=== PATIENT | female | born 1955 | race Caucasian/White ===

== ENCOUNTER 2023-10-13 00:57 | Day surgery (SDC) | payer MEDICARE, SELFPAY ==
[2023-10-12 08:34] VITALS: BMI 23.9
--- NOTE | 2023-10-12 08:48 | PC.NURSE ---
Report to the Outpatient Waiting Room, entrance under the green pavilion located off [facility], at time _1200_ on date _[id number]_. Planned Procedure Time: _2pm_. Time changes happen often and if your time is changed the preop area will call you the afternoon before. - You and your visitor will be asked to self-screen and do not enter if you have any COVID symptoms. - A mask is optional within the hospital at this time. Patients may have clear liquids (water, carbonated beverages, clear teas, apple juice) until 3 hours prior to surgery with a maximum of 20 ounces. - No food from midnight until time of surgery Take the following medications with a SIP of water the morning of surgery: __Metoprolol and eye drops. DO NOT STOP ANY OF YOUR OTHER PRESCRIPTION MEDICATIONS PRIOR TO SURGERY ?EXCEPT THE FOLLOWING Medications to discontinue per physician No vitamins today. __No insulin tomorrow morning. Call [phone] if having issues with blood sugars. Date to take last dose Please no make-up, nail slovenian, hairspray, perfume, deodorant, or body powder the day of surgery. No jewelry (including any body piercings) or valuables the day of surgery, leave them at home. Please take a shower or bath the night before, or the morning of, surgery with an antibacterial soap. Wear comfortable, loose fitting clothing. - Jewelry must be removed prior to entering the operating room. Rings and piercings that are not removed may be cut off. - The hospital will not accept responsibility for valuables. - Please leave all valuables, including medications, at home the day of surgery. If you are going home after surgery, a licensed distribution driver must drive you home. - NO public transportation without another adult if you receive anesthesia. - We recommend that an adult stay with you for 24 hours following discharge. - We also recommend that you do not drive, make important decision, drink alcoholic beverages, or take any drugs that were not prescribed by your health care provider for at least 24 hours after your discharge time. Follow any additional instructions given to you from your surgeon. If you or anyone in your household have experienced Covid symptoms in the past week, please notify your surgeon or the nurse liaison at the phone number below for possible testing. Telephone instructions given to __Kateshena___and asked if any additional questions and then verbalized understanding. Patient advised to call surgeon office or pre surgery nurse liaison [phone] if any additional questions.
[2023-10-13] VITALS (9 sets, daily range): BP systolic 98–171; BP diastolic 39–61; PULSE 55–91; RESP 13–24; TEMP 36.2–36.6; O2SAT 96–100
--- NOTE | 2023-10-13 12:30 | WPDANESEPPF ---
Anes - Initial Pre Proc Eval Procedure: Operation Date: 10/13/23 14:00 Proposed Procedures p Laparoscopic Insertion Peritoneal Dialysis Catheter - Linden Stephens DO Date/Time: 10/13/23 12:30 Surgeon: Linden Stephens DO Pre Op Diagnosis: ESRD Patient Data Age: 67 Gender: F Height: 1.6 m Weight: 61.3 kg Allergies Allergy/AdvReac Type Severity Reaction Status Date / Time Penicillins Allergy Unknown Unknown Verified 10/12/23 08:30 Home Medications Medication Instructions Recorded Confirmed Type aspirin 81 mg tablet,delayed 81 mg PO DAILY 10/01/23 10/12/23 History release (Adult Aspirin Regimen) atorvastatin 80 mg tablet 80 mg PO QHS 10/01/23 10/12/23 History brimonidine 0.2 % eye drops 1 drp EACH EYE Q8H 10/01/23 10/12/23 History cetirizine 10 mg tablet (All Day 10 mg PO DAILY PRN Allergy Symptoms 10/01/23 10/12/23 History Allergy (cetirizine)) cholecalciferol (vitamin D3) 50 50 mcg PO DAILY 10/01/23 10/12/23 History mcg (2,000 unit) capsule dorzolamide 2 % eye drops 1 drp EACH EYE TID 10/01/23 10/12/23 History ezetimibe 10 mg tablet 10 mg PO DAILY 10/01/23 10/12/23 History ferrous sulfate 325 mg (65 mg 325 mg PO BID 10/01/23 10/12/23 History iron) tablet fluticasone propionate 50 1 spray intranasal DAILY PRN 10/01/23 10/12/23 History mcg/actuation nasal Allergy Symptoms spray,suspension insulin aspart U-100 100 unit/mL 1 sliding scale dose subcut 10/01/23 10/12/23 History (3 mL) subcutaneous pen (Novolog USEASDIRECTD FlexPen U-100 Insulin aspart) insulin degludec 100 unit/mL (3 10 unit subcut QHS 10/01/23 10/12/23 History mL) subcutaneous pen (Tresiba FlexTouch U-100 insulin) mecobalamin (vitamin B12) 1,000 1,000 mcg PO DAILY 10/01/23 10/12/23 History mcg chewable tablet metoprolol succinate 50 mg 50 mg PO DAILY 10/01/23 10/12/23 History tablet,extended release 24 hr pantoprazole 40 mg tablet,delayed 40 mg PO QAM 10/01/23 10/12/23 History release vitamin A-vitamin C-vit E-min 1 tablet PO DAILY 10/12/23 10/12/23 History tablet Patient hx anesthesia problems: none Family hx anesthesia problems: none Results Review: All pre-operative results and documents have been reviewed as part of the pre-operative evaluation. COUNTS INCLUDE 234 BEDS AT THE [facility] Past Medical History Medical History Anemia CHF (congestive heart failure) Diabetes GERD (gastroesophageal reflux disease) Hyperlipidemia Kidney disease Osteoporosis Surgical History Surgical History History of left breast biopsy x3 History of quadruple bypass 03/12/23 Hx of section Family History Family History Mother Hypertension Grandparent Hypertension Social History Social History Years smoked: 5 Smoking status: Former smoker Smoking end date: 10/12/79 Alcohol intake: never Do You Feel Safe in your Home?: Yes Lack of Transportation: No Lack of Food: Never True Current Housing: I Have Housing Concerned About Future Housing: No Difficulty Paying Gas/Electric Bills: No Difficulty Paying for Meds: No Currently Unemployed: No Education: High School Diploma/GED Difficulty w/ Childcare or Family Care: No Living arrangements: with family Occupation/Education: retired Spiritual care concerns: No Anes - Eval Final PreProcedure Day of Procedure 10/13/23 12:30 Patient weight: normal Heart: regular rate and rhythm Lungs: clear to auscultation Airway: Mallampati scale class II Neurological: alert and oriented Last oral intake: >/= 8 hours ASA classification: IV Emergent: no Anesthetic plan: proceed Anesthesia type and monitoring: general ETT and standard monitoring Results Review: All pre-operative results and documents have been reviewed as part
[2023-10-13] MEDS: SODIUM CHLORIDE 0.9% IV 500 ML 30 ML IV CONT (12:50)
[2023-10-13 13:01] LABS: Glucose Point of Care 84 mg/dl (65-105)
[2023-10-13 13:15] LABS: INR 1.1; Prothrombin Time 14.4 Seconds (11.1-14.7)
[2023-10-13 13:23] LABS: Partial Thromboplastin Time 39.7 Seconds (22.3-36.8)
--- NOTE | 2023-10-13 13:32 | WPDHPUPDATE1 ---
History and Physical Update Update Date/Time: 10/13/23 13:32 History and Physical has been reviewed, including an updated exam of the patient. There are NO changes in the patient's condition. Risks, benefits, and alternatives have been discussed and questions answered. Patient agrees to proceed with procedure.
[2023-10-13 13:33] LABS: Anion Gap 10 mmol/L (4-12); Blood Urea Nitrogen 24 mg/dL (7-17); Calcium 8.7 mg/dL (8.4-10.2); Carbon Dioxide 34 mmol/L (22-30); Chloride 92 mmol/L (98-107); Estimated CRCL calculation 14 ml/min; Estimated Glomerular Filt Rate 17; Glucose 89 mg/dL (65-110); Potassium 3.5 mmol/L (3.4-5.0); Sodium 136 mmol/L (137-145)
[2023-10-13] MEDS: ceFAZolin 2 GM/D5W 50 ML 2 GM/50 ML BAG IVPB (14:11)
[2023-10-13] MEDS: BUPIVACAINE/EPINEPHRINE 0.5% 10 ML VIAL 30 ML INFILTRATE (14:38)
--- NOTE | 2023-10-13 15:18 | W.PM.PROC2 ---
Procedure Note - Detailed Date of Procedure 10/13/23 Pre-op Diagnosis ESRD Post-op Diagnosis Same Procedure Performed Laparoscopic insertion of peritoneal dialysis catheter Surgeon Linden Stephens, DO Anesthesia General and Local (0.5% bupivacaine with epinephrine) Indications End-stage renal disease Findings Upon inspecting the abdomen laparoscopically, there was 1 loop of distal ileum that was adherent to the right lower quadrant abdominal wall. This adhesion was taken down to free up visualization into the lower abdomen and pelvis. Patient was also noted to have a possible small 1 cm umbilical hernia. The uterus had a couple adhesions down in the pelvis, but anterior to this area appeared to be free of adhesions. Description of Procedure Procedure as well as risks, benefits, and alternatives were discussed with the patient. Written consent was obtained and placed in chart prior to procedure. Patient was brought back to surgical suite. She was placed supine on operating table. Time-out was done to confirm patient and procedure. Patient was intubated by the anesthesia department. Her abdomen was prepped and draped in sterile fashion using chlorhexidine prep. 0.5% bupivacaine with epinephrine was infiltrated locally around each of the locations for incisions. A 5 mm incision was made in the left upper quadrant and a 5 mm Optiview trocar was advanced through the abdominal layers under direct visualization. Once inside the abdominal cavity, carbon dioxide insufflation was insufflated creating pneumoperitoneum. The camera was inserted in the abdominal cavity was inspected. No mated abnormalities were identified. The patient was then placed in steep Trendelenburg position. She did have a a loop of small bowel that was adherent to the abdominal wall in the right lower quadrant. Decision was made to take these adhesions down to free up the lower abdomen for the catheter placement. A 5 mm incision was made in the right lateral abdomen a 5 mm trocar was inserted under direct visualization. Laparoscopic scissors were then used to take down the small bowel adhesions. I carefully inspected the small bowel to ensure that there were no signs of injury to it after adhesiolysis. I then also inspected the pelvis. The uterus had a couple adhesions deep into the pelvis, but the anterior pelvis was completely free of adhesions. An 8 mm incision was then made about 5 cm to the left of the umbilicus and an 8 mm trocar was inserted under direct visualization. This was angled caudally and towards midline and then advanced through the peritoneum about 5 cm inferior to the skin incision. The 62 cm argyle peritoneal dialysis catheter was advanced through the 8 mm port into the pelvis. This was advanced until the cuff was visualized then the cuff was withdrawn into the rectus muscle port was then carefully removed over the catheter tubing. The catheter appeared in proper position and no other abnormalities were noted. The pneumoperitoneum was released. The tunneling device was then secured to the and the catheter this was then advanced to the left of the insertion site. This was then punctured through the skin in the left lower quadrant and the catheter tubing was delivered all the way through until the 2nd cuff was secure within the subcutaneous tissue. The catheter was then instilled with about 500 mL of sterile saline. Then this was aspirated. The catheter appeared to function with ease. About 250 mL of sterile saline was then instilled and left within the abdominal cavity. The Luer lock and cap were then placed over the end of the catheter tubing. The 5 mm ports were removed. The skin of the incisions was approximated using 4-0 Monocryl subcuticular sutures. Exofin glue was then applied on top. A Biopatch was then inserted at the exit site of the catheter and 4 x 4 gauze and Tegaderm dressing were then applied over the catheter. The patient was then awakened
[2023-10-13 16:09] LABS: Glucose Point of Care 86 mg/dl (65-105)
== END 2023-10-13 16:44 | disposition home or self-care (01) ==
PROVIDERS: PCP Family Medicine; Visit Provider Surgery
PROC: 0DTJ4ZZ Resection of Appendix, Percutaneous Endoscopic Approach (ICD-10-PCS; CPT 44970; principal; 2023-10-13 14:00)
DX: I13.0 Hypertensive heart and chronic kidney disease with heart failure and stage 1 through stage 4 chronic kidney disease, or unspecified chronic kidney disease (principal); I50.9 Heart failure, unspecified; E11.22 Type 2 diabetes mellitus with diabetic chronic kidney disease; N18.6 End stage renal disease; N73.6 Female pelvic peritoneal adhesions (postinfective); D64.9 Anemia, unspecified; K21.9 Gastro-esophageal reflux disease without esophagitis; E78.5 Hyperlipidemia, unspecified; M81.0 Age-related osteoporosis without current pathological fracture; Z79.82 Long term (current) use of aspirin; Z79.4 Long term (current) use of insulin; Z95.1 Presence of aortocoronary bypass graft; Z87.891 Personal history of nicotine dependence
CPT/HCPCS: 49324; 36415; 80048; 82948; 85610; 85730; J0330; J0690; J1100; J2250; J2405; J2704; J3010; J7030; J7040

== ENCOUNTER 2024-02-18 10:15 | Outpatient (CLI) | payer MEDICARE, SELFPAY ==
[2024-02-18 10:43] LABS: Hematocrit 31.9 % (37.0-47.0); Hemoglobin 10.7 g/dL (12.0-15.0)
[2024-02-18 10:54] LABS: Prothrombin Time 13.3 Seconds (11.1-14.7)
[2024-02-18 10:55] LABS: Blood Urea Nitrogen 28 mg/dL (7-17); Calcium 9.3 mg/dL (8.4-10.2); Carbon Dioxide > 40 mmol/L (22-30); Chloride 93 mmol/L (98-107); Estimated Glomerular Filt Rate 19; Glucose 113 mg/dL (65-110); Partial Thromboplastin Time 36.8 Seconds (22.3-36.8); Potassium 3.8 mmol/L (3.4-5.0); Sodium 135 mmol/L (137-145)
== END 2024-02-18 10:16 | disposition home or self-care (01) ==
PROVIDERS: Anesthesiology; PCP Family Medicine; Visit Provider Surgery
DX: N18.6 End stage renal disease (principal); D64.9 Anemia, unspecified; Z01.818 Encounter for other preprocedural examination
CPT/HCPCS: 36415; 80048; 85014; 85018; 85610; 85730

== ENCOUNTER 2024-02-21 00:30 | Day surgery (SDC) | payer MEDICARE, SELFPAY ==
--- NOTE | 2024-02-08 11:06 | PC.NURSE ---
Report to the Outpatient Waiting Room, entrance under the green pavilion located off [facility], at time _10 AM on date 02/21/24 . Planned Procedure Time: 1200 NOON .? Time changes happen often and if your time is changed the preop area will call you the afternoon before. - You and your visitor will be asked to self-screen and do not enter if you have any COVID symptoms. Please call surgeon if you need to reschedule. - A mask is optional within the hospital at this time. Patients may have clear liquids (water, carbonated beverages, clear teas, apple juice) until 3 hours prior to surgery( 9 AM) with a maximum of 20 ounces. - No food from midnight until time of surgery and no smoking - Infants may have breast milk until 4 hours before surgery, infant formula 6 hours prior to surgery. - Children will be allowed to drink immediately following surgery.? If applicable, please bring a bottle or sippy cup to assist with drinking. Juice, water, soda, and popsicles are readily available.? For infants on formula, please bring formula the day of surgery.? Pacifiers are allowed. Take only the following medications with a SIP of water on the morning of surgery: _EYE DROPS,METOPROLOL DO NOT STOP ANY OF YOUR OTHER PRESCRIPTION MEDICATIONS PRIOR TO SURGERY EXCEPT THE FOLLOWING Medications to discontinue per physician _HOLD ALL VITAMINS AND SUPPLEMENTS 3 DAYS PRE OP. MAY CONTINUE ASPIRIN 81 MG BUT DO NOT TAKE MORNING OF SURGERY PER DR CORREA Date to take last dose___02/17/24 Please no make-up, nail northern irish, hairspray, perfume, deodorant, or body powder the day of surgery.? No jewelry (including any body piercings) or valuables the day of surgery, leave them at home.? Please take a shower or bath the night before, or the morning of, surgery with an antibacterial soap.? Wear comfortable, loose fitting clothing.? Children are encouraged to wear pajamas. - Jewelry must be removed prior to entering the operating room.? Rings and piercings that are not removed may be cut off. - The hospital will not accept responsibility for valuables.? - Please leave all valuables, including medications, at home the day of surgery. If you are going home after surgery, a licensed concrete pile driver operator must drive you home.? - NO public transportation without another adult if you receive anesthesia. - We recommend that an adult stay with you for 24 hours following discharge. - We also recommend that you do not drive, make important decision, drink alcoholic beverages, or take any drugs that were not prescribed by your health care provider for at least 24 hours after your discharge time. Follow any additional instructions given to you from your surgeon. Telephone instructions given to _PATIENT and asked if any additional questions and then verbalized understanding. Patient advised to call surgeon office or pre surgery nurse liaison [phone] if any additional questions.
[2024-02-08 11:33] VITALS: BMI 21.9
[2024-02-21] VITALS (7 sets, daily range): BP systolic 132–169; BP diastolic 50–87; PULSE 46–88; RESP 12–18; TEMP 36.2–36.6; O2SAT 100; BMI 23.0
--- NOTE | 2024-02-21 10:25 | P.PNAN_ITS ---
Anes - Initial Pre Proc Eval Procedure: Operation Date: 02/21/24 12:00 Proposed Procedures p Peritoneal Dialysis Catheter Removal - Linden Stephens DO Date/Time: 02/21/24 10:25 Surgeon: Linden Stephens DO Pre Op Diagnosis: end stage renal disease Patient Data Age: 68 Gender: F Height: 1.63 m Weight: 58.1 kg Allergies Allergy/AdvReac Type Severity Reaction Status Date / Time Penicillins Allergy Unknown Swelling Verified 02/08/24 10:48 Home Medications Medication Instructions Recorded Confirmed Type aspirin 81 mg tablet,delayed 81 mg PO DAILY 10/01/23 02/08/24 History release (Adult Aspirin Regimen) atorvastatin 80 mg tablet 80 mg PO QHS 10/01/23 02/08/24 History cetirizine 10 mg tablet (All Day 10 mg PO PRN PRN Allergy Symptoms 10/01/23 02/08/24 History Allergy (cetirizine)) cholecalciferol (vitamin D3) 50 50 mcg PO DAILY 10/01/23 02/08/24 History mcg (2,000 unit) capsule dorzolamide 2 % eye drops 1 drp EACH EYE TID 10/01/23 02/08/24 History ezetimibe 10 mg tablet 10 mg PO DAILY 10/01/23 02/08/24 History fluticasone propionate 50 1 spray intranasal PRN PRN Allergy 10/01/23 02/08/24 History mcg/actuation nasal Symptoms spray,suspension insulin aspart U-100 100 unit/mL 1 sliding scale dose subcut 10/01/23 02/08/24 History (3 mL) subcutaneous pen (Novolog USEASDIRECTD FlexPen U-100 Insulin aspart) insulin degludec 100 unit/mL (3 10 unit subcut QHS 10/01/23 02/08/24 History mL) subcutaneous pen (Tresiba FlexTouch U-100 insulin) mecobalamin (vitamin B12) 1,000 1,000 mcg PO DAILY 10/01/23 02/08/24 History mcg chewable tablet metoprolol succinate 50 mg 50 mg PO DAILY 10/01/23 02/08/24 History tablet,extended release 24 hr pantoprazole 40 mg tablet,delayed 40 mg PO QAM 10/01/23 02/08/24 History release vitamin A-vitamin C-vit E-min 1 tablet PO DAILY 10/12/23 02/08/24 History tablet furosemide 80 mg tablet 80 mg PO 4XW 02/08/24 02/08/24 History Laboratory Tests 02/21/24 10:09 Sodium Pending Potassium Pending Chloride Pending Carbon Dioxide Pending Anion Gap Pending BUN Pending Creatinine Pending Estim Creat Clear Calc Pending Estimated GFR Pending Glucose Pending Calcium Pending Patient hx anesthesia problems: none Family hx anesthesia problems: none Results Review: All pre-operative results and documents have been reviewed as part of the pre- operative evaluation. [facility] Past Medical History Medical History Anemia CHF (congestive heart failure) Diabetes GERD (gastroesophageal reflux disease) Hyperlipidemia Kidney disease Osteoporosis Surgical History Surgical History History of left breast biopsy x3 History of peritoneal dialysis Laparoscopic insertion of peritoneal dialysis catheter 10/13/23 History of quadruple bypass 03/12/23 Hx of section Family History Family History Mother Hypertension Grandparent Hypertension Social History Social History Smoking packs per day: 0.5 Smoking cigarettes per day: 10.0 Years smoked: 10 Smoking pack-years: 5.00 Smoking status: Former smoker Tobacco type: cigarettes Smoking end date: 04/05/79 Alcohol intake: never Do You Feel Safe in your Home?: Yes Lack of Transportation: No Lack of Food: Never True Current Housing: I Have Housing Concerned About Future Housing: No Difficulty Paying Gas/Electric Bills: No Difficulty Paying for Meds: No Currently Unemployed: No Education: High School Diploma/GED Difficulty w/ Childcare or Family Care: No Living arrangements: with family Occupation/Education: retired Spiritual care concerns: No Anes - Eval Final PreProcedure Day of Procedure 02/21/24 10:25 Patient weight: normal Heart: regular rate and rhythm Lungs: clear to auscultation Airway: Mallampati scale class II Neurological: alert and oriented Last oral intake: >/= 8 hours ASA classification: IV Emergent: no Anesthetic plan: proceed Anesthesia type and monitoring: general GIVS and standard monitoring Results Review: All pre-operative results and documents have been reviewed as part of the pre- operative evaluation. Informed Consent: The patient's anesthetic plan and its attendant risks and benefits were discussed with the patient/family/POA. Questions were solicited and answers provided to the satisfaction of the patient/family/POA.
[2024-02-21 10:57] LABS: Anion Gap 9 mmol/L (4-12); Blood Urea Nitrogen 46 mg/dL (7-17); Calcium 9.2 mg/dL (8.4-10.2); Carbon Dioxide 31 mmol/L (22-30); Chloride 93 mmol/L (98-107); Estimated CRCL calculation 15 ml/min; Estimated Glomerular Filt Rate 17; Glucose 103 mg/dL (65-110); Potassium 4.6 mmol/L (3.4-5.0); Sodium 133 mmol/L (137-145)
--- NOTE | 2024-02-21 12:04 | WPDHPUPDATE1 ---
History and Physical Update Update Date/Time: 02/21/24 12:04 History and Physical has been reviewed, including an updated exam of the patient. There are NO changes in the patient's condition. Risks, benefits, and alternatives have been discussed and questions answered. Patient agrees to proceed with procedure.
--- NOTE | 2024-02-21 12:04 | PM.IMHP ---
H&P: HPI History of Present Illness Date/Time: 02/21/24 12:04 Chief Complaint: Removal of peritoneal dialysis catheter Narrative: 68 yo woman presents for removal of peritoneal dialysis catheter. She was undergoing home peritoneal dialysis but did not like the process and was having too many difficulties. Review of Systems Review of Systems: All systems reviewed & are unremarkable except as noted in HPI and below Constitutional: Constitutional: Denies chills, Denies fever(s), Denies headache(s) and Denies weight loss Eyes: Eyes: Denies change in vision ENT: Denies dizziness, Denies headache(s), Denies neck mass and Denies throat swelling Cardiovascular: Cardiovascular: Denies chest pain, Denies lightheadedness and Denies dyspnea Respiratory: Respiratory: Denies cough, Denies dyspnea and Denies wheezing Gastrointestinal: Gastrointestinal: Denies abdominal pain, Denies change in bowel habits, Denies nausea and Denies vomiting Genitourinary: Genitourinary: Denies hematuria and Denies dysuria Musculoskeletal: Musculoskeletal: Reports as per HPI Integumentary/Breasts: Skin/Breast: Reports as per HPI Neurologic: Denies dizziness and Denies headache(s) Allergic/Immunologic: Allergic/Immunologic: Denies throat swelling and Denies wheezing PMFSH Past Medical History Medical History Anemia CHF (congestive heart failure) Diabetes GERD (gastroesophageal reflux disease) Hyperlipidemia Kidney disease Osteoporosis Surgical History Surgical History History of left breast biopsy x3 History of peritoneal dialysis Laparoscopic insertion of peritoneal dialysis catheter 10/13/23 History of quadruple bypass 03/12/23 Hx of section Family History Family History Mother Hypertension Grandparent Hypertension Social History Social History Smoking packs per day: 0.5 Smoking cigarettes per day: 10.0 Years smoked: 10 Smoking pack-years: 5.00 Smoking status: Former smoker Tobacco type: cigarettes Smoking end date: 04/05/79 Alcohol intake: never Do You Feel Safe in your Home?: Yes Lack of Transportation: No Lack of Food: Never True Current Housing: I Have Housing Concerned About Future Housing: No Difficulty Paying Gas/Electric Bills: No Difficulty Paying for Meds: No Currently Unemployed: No Education: High School Diploma/GED Difficulty w/ Childcare or Family Care: No Living arrangements: with family Occupation/Education: retired Spiritual care concerns: No Meds Home Medications and Allergies Home Medications Medication Instructions Recorded Confirmed Type aspirin 81 mg tablet,delayed 81 mg PO DAILY 10/01/23 02/21/24 History release (Adult Aspirin Regimen) atorvastatin 80 mg tablet 80 mg PO QHS 10/01/23 02/08/24 History cetirizine 10 mg tablet (All Day 10 mg PO PRN PRN Allergy Symptoms 10/01/23 02/08/24 History Allergy (cetirizine)) cholecalciferol (vitamin D3) 50 50 mcg PO DAILY 10/01/23 02/08/24 History mcg (2,000 unit) capsule dorzolamide 2 % eye drops 1 drp EACH EYE TID 10/01/23 02/08/24 History ezetimibe 10 mg tablet 10 mg PO DAILY 10/01/23 02/08/24 History fluticasone propionate 50 1 spray intranasal PRN PRN Allergy 10/01/23 02/08/24 History mcg/actuation nasal Symptoms spray,suspension insulin aspart U-100 100 unit/mL 1 sliding scale dose subcut 10/01/23 02/08/24 History (3 mL) subcutaneous pen (Novolog USEASDIRECTD FlexPen U-100 Insulin aspart) insulin degludec 100 unit/mL (3 10 unit subcut QHS 10/01/23 02/08/24 History mL) subcutaneous pen (Tresiba FlexTouch U-100 insulin) mecobalamin (vitamin B12) 1,000 1,000 mcg PO DAILY 10/01/23 02/08/24 History mcg chewable tablet metoprolol succinate 50 mg 50 mg PO DAILY 10/01/23 02/21/24 History tablet,extended release 24 hr pantoprazole 40 mg tablet,delayed 40 mg PO QAM 10/01/23 02/21/24 History release vitamin A-vitamin C-vit E-min 1 tablet PO DAILY 10/12/23 02/08/24 History tablet furosemide 80 mg tablet 80 mg PO 4XW 02/08/24 02/08/24 History Allergies Allergy/AdvReac Type Severity Reaction Status Date / Time Penicillins Allergy Unknown Swelling Verified 02/21/24 10:28 Exam Const: General: no acute distress and alert Orientation/consciousness: patient oriented x3 HENMT: Head: normocephalic and atraumatic Ears: hearing grossly normal bilaterally Face/Nose/Sinus: Normal nares present Mouth: Yes Normal oral and palatal mucosa present Eyes: Periorbital: periorbital findings normal Sclera: sclerae normal EOM: EOMs intact bilaterally Neck: Neck: normal visual inspection, no lymphadenopathy and trachea midline Chest: Chest palpation & inspection: normal inspection of the chest Resp: Effort & Inspection: normal respiratory effort Auscultation: clear to auscultation bilaterally Cardio: Jugular venous distension: no JVD Rate: regular rate Rhythm: regular rhythm Heart sounds: S1 normal heart sound present and S2 normal heart sound present Peripheral pulses: Peripheral pulses 2+ throughout GI: Inspection: normal to inspection GI Palp: Yes Soft to palpation, No Tenderness to palpation present (GI), No Guarding due to palpation present (GI) and No Rebound tenderness present Percussion: Yes normal to percussion Auscultation: normal bowel sounds : General: Yes no CVA tenderness Back/Spine/Pelvis: Back: no CVA tenderness Neuro: General: patient oriented x3, no focal motor deficits and CN's II-XI intact bilaterally Cognition (Neuro): normal cognition Speech: normal speech Motor exam (neuro): 5/5 motor strength present throughout Extrem: General: capillary refill normal and no clubbing, cyanosis or edema H&P: Results Labs Labs: [facility] 02/21/24 10:09 Sodium 133 L Potassium 4.6 Chloride 93 L Carbon Dioxide 31 H BUN 46 H D Creatinine 2.80 H Glucose 103 Calcium 9.2 Assessment and Plan Assessment and plan (1) ESRD (end stage renal disease): Code(s): N18.6 - End stage renal disease Status: Acute Assessment and Plan: I have recommended removal of peritoneal dialysis catheter. I have discussed the procedure, risks, benefits, and alternatives with the patient. All questions answered. No changes since last seen in office.
[2024-02-21 12:05] LABS: Glucose Point of Care 111 mg/dl (65-105)
[2024-02-21] MEDS: ceFAZolin 2 GM/D5W 50 ML 2 GM/50 ML BAG IVPB (12:34)
[2024-02-21] MEDS: LIDO 1%/EPINEPHRINE 1:100,000 20 ML VIAL 50 ML INFILTRATE (12:53)
--- NOTE | 2024-02-21 13:07 | W.PM.PROC2 ---
Procedure Note - Detailed Date of Procedure 02/21/24 Pre-op Diagnosis end stage renal disease Post-op Diagnosis Same Procedure Performed Removal of peritoneal dialysis catheter Surgeon Linden Stephens, DO Anesthesia General and Local (1% lidocaine with epinephrine) Indications This is a 68-year-old woman who presented for removal of her peritoneal dialysis catheter. She had a peritoneal dialysis catheter placed 4 months ago but after undergoing peritoneal dialysis catheter for while, she felt that she preferred continuing with hemodialysis. She already has a tunneled hemodialysis catheter and an AV fistula in place. Discussions were made with the patient about treatment options and decision was made to proceed with removal of peritoneal dialysis catheter. Findings The peritoneal dialysis catheter was removed. The tip of the catheter was intact and no other abnormalities were noted. Catheter was sent to pathology. Description of Procedure Procedure as well as risks, benefits, and alternatives were discussed with the patient. Written consent was obtained and placed in chart prior to procedure. Patient was brought back to surgical suite. She was placed supine on operating table. Time-out was done to confirm patient and procedure. She was then intubated by the anesthesia department. Her abdomen was prepped and draped in sterile fashion using chlorhexidine prep. 1% lidocaine with epinephrine was infiltrated locally around the previous scar from catheter placement. A 3 cm transverse incision was made directly over the area where the catheter was entering through the rectus muscle using a 15 blade scalpel. Electrocautery was used for hemostasis and for dissection through the subcutaneous tissue. The subcutaneous cuff on the catheter was identified and freed circumferentially using electrocautery. I then incised the anterior rectus sheath and identified the cuff within the rectus muscle and freed this up circumferentially using electrocautery. Once both cuffs were completely free of adhesions, I was then able to withdraw the catheter tubing from the abdominal cavity. The catheter tubing was completely removed and appeared intact. The catheter tubing was cut at the level of the skin and withdrawn through the previous tract to completely remove it. The wound bed was then inspected. Hemostasis appeared adequate. The fascia of the anterior rectus sheath was then reapproximated using an 0 Vicryl [id number] suture. The skin of the incision was then approximated using 4-0 Monocryl running subcuticular suture. Exofin glue was then applied on top. A 2 x 2 gauze and Tegaderm dressing were then applied over the previous exit site. The patient was then awakened from anesthesia, extubated, and transferred to recovery. Estimated Blood Loss 10 Pathology Yes (Peritoneal dialysis catheter) Complications No immediate complications Condition Stable Disposition Same day [facility] Billing Surgery - Charge Forward: Surgery Billing
[2024-02-21] MEDS: SODIUM CHLORIDE 0.9% IV 500 ML 30 ML IV CONT (13:10)
[2024-02-21 13:18] LABS: Glucose Point of Care 101 mg/dl (65-105)
[2024-02-21] MEDS: ONDANSETRON INJ 4 MG/2 ML VIAL IV PUSH (14:14)
== END 2024-02-21 15:04 | disposition home or self-care (01) ==
PROVIDERS: Anesthesiology; PCP Family Medicine; Visit Provider Surgery
PROC: (CPT 36908; principal; 2024-02-21 12:00)
DX: Z49.01 Encounter for fitting and adjustment of extracorporeal dialysis catheter (principal); I13.2 Hypertensive heart and chronic kidney disease with heart failure and with stage 5 chronic kidney disease, or end stage renal disease; E11.22 Type 2 diabetes mellitus with diabetic chronic kidney disease; N18.6 End stage renal disease; I50.9 Heart failure, unspecified; E78.5 Hyperlipidemia, unspecified; D63.1 Anemia in chronic kidney disease; M81.0 Age-related osteoporosis without current pathological fracture; Z95.1 Presence of aortocoronary bypass graft; Z87.891 Personal history of nicotine dependence; Z79.82 Long term (current) use of aspirin; Z79.4 Long term (current) use of insulin
CPT/HCPCS: 49422; 36415; 80048; 82948; 88300; J0690; J1644; J2003; J2004; J2405; J2704; J3010; J7030; J7040